=== PATIENT | female | born 1990 | race Caucasian/White ===

== ENCOUNTER 2018-01-20 02:35 | Emergency (ER) | END 2018-01-20 05:01 | disposition home or self-care (01) ==

== ENCOUNTER 2018-06-02 02:41 | Emergency (ER) | END 2018-06-02 05:18 | disposition home or self-care (01) ==

== ENCOUNTER 2018-06-05 04:02 | Emergency (ER) | END 2018-06-05 07:13 | disposition home or self-care (01) ==

== ENCOUNTER 2018-08-12 10:08 | Emergency (ER) | END 2018-08-12 11:44 | disposition home or self-care (01) ==

== ENCOUNTER 2019-05-12 00:19 | Emergency (ER) | payer OTHER ==
[~2019-05-12] VITALS: Ht 157.5 cm; Wt 62.6 kg
[~2019-05-12 00:19] MED LIST: ACET500C5 PO; CEPH-443 PO; IBUP-1542 PO; NITR-58 PO; PHEN-537 PO; PHEN-538 PO; PREN1TAB62 PO; TYL500 PO
[2019-05-12 00:39] VITALS: Ht 157.5 cm; Wt 62.6 kg
[2019-05-12 02:27] VITALS: BP 111/73; PULSE 59; RESP 16
== END 2019-05-12 02:30 | disposition home or self-care (01) ==
LOC: FTE 00:19
DX: N30.01 Acute cystitis with hematuria (principal)
CPT/HCPCS: 81001; 81025; 87086; Z7502; 99283